=== PATIENT | female | born 1970 | race American Indian/Alaskan Native ===

== ENCOUNTER 2016-05-13 10:30 | Outpatient (CLI) | payer OTHER ==
--- NOTE | 2016-05-13 11:01 | Mammography Report ---
Right mammogram: Additional imaging of the right breast is performed for questionable asymmetry on recent screening exam. CC and lateral spot compression imaging is performed. Asymmetry is no longer identified. The findings appear essentially unchanged compared to prior exam in March 2015. Impression: Stable right mammogram. Recommendation: Annual mammogram followup. BI-RADS CATEGORY: 1 = Negative ACR BI-RADS MAMMOGRAPHIC CODES: 0 = Needs additional imaging evaluation; 1 = Negative; 2 = Benign; 3 = Probably benign; 4 = Suspicious; 5 = Malignant; 6 = Known biopsy-proven malignancy COMMENT: 1. Dense breast tissue, i.e., adenosis, fibrocystic changes, etc., may obscure an underlying neoplasm. 2. Approximately 10% of cancers are not detected with mammography. 3. A negative mammography report should not delay biopsy if a clinically suspicious mass is present.
== END 2016-05-13 10:31 | disposition home or self-care (01) ==
LOC: SPVWC 10:30
PROVIDERS: ATTEND Family Medicine
DX: R92.8 Other abnormal and inconclusive findings on diagnostic imaging of breast (principal); R92.2 Inconclusive mammogram
CPT/HCPCS: G0206-RT

== ENCOUNTER 2016-07-05 23:55 | Emergency (ER) | payer OTHER ==
[2016-07-06 00:09] VITALS: BP 114/81
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
[2016-07-06] MEDS ORDERED: NORCO 5/325 PO ONE (03:16)
== END 2016-07-06 03:51 | disposition home or self-care (01) ==
LOC: ED 23:55
DX: M25.512 Pain in left shoulder (principal); G89.29 Other chronic pain; M79.1 Myalgia; G43.909 Migraine, unspecified, not intractable, without status migrainosus
CPT/HCPCS: 99282

== ENCOUNTER 2016-11-01 16:36 | Emergency (ER) | payer OTHER ==
[2016-11-01 16:44] VITALS: BP 130/83
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
[2016-11-01] MEDS ORDERED: MOTRIN PO ONE (22:09)
[2016-11-01 22:54] LABS: Basophils % (Auto) 0.2 % (0.0-1.8); Eosinophils % (Auto) 0.1 % (0.0-4.3); Hematocrit 37.4 % (30.3-42.9); Hemoglobin 12.1 gm/dl (10.1-14.3); Mean Corpuscular HGB Conc 32 % (30-34); Mean Corpuscular Hemoglobin 29 pg (28-32); Mean Corpuscular Volume 91 fl (79-97); Platelet Count 279 K/mm3 (140-440); Red Blood Count 4.13 M/mm3 (3.65-5.03); Red Cell Distribution Width 14.2 % (13.2-15.2); White Blood Count 10.5 K/mm3 (4.5-11.0)
[2016-11-01 23:04] LABS: Anion Gap 19 mmol/L; Blood Urea Nitrogen 10 mg/dL (7-17); Calcium 9.2 mg/dL (8.4-10.2); Carbon Dioxide 22 mmol/L (22-30); Chloride 102.2 mmol/L (98-107); Glucose 99 mg/dL (65-100); Potassium 4.9 mmol/L (3.6-5.0); Sodium 138 mmol/L (137-145)
[2016-11-01 23:18] LABS: Erythrocyte Sedimentation Rate 35 mm/Hr (0-20)
--- NOTE | 2016-11-02 00:09 | Cat Scan Report ---
FINAL REPORT EXAM: CT HEAD/BRAIN WO CON HISTORY: right sided headache COMPARISON: None available. TECHNIQUE: Axial images obtained skull base through vertex. FINDINGS: No acute intracranial hemorrhage, midline shift or pathologic extra axial fluid collection. Ventricles and cisterns are normal in size and configuration for the patient's age. Zayas-white differentiation preserved. Calvarium grossly intact. Orbits are grossly unremarkable. Mild to moderate mucosal thickening the right sphenoid sinus. Opacification of the mid right ethmoid air cell. Mastoid air cells are clear. IMPRESSION: No grossly acute intracranial abnormality. Mild to moderate mucosal thickening the right sphenoid sinus.
== END 2016-11-02 00:55 | disposition home or self-care (01) ==
LOC: ED 16:36
DX: R51 Headache (principal)
CPT/HCPCS: 36415; 70450; 80048; 84703; 85025; 85652; 86140

== ENCOUNTER 2017-05-05 08:17 | Outpatient (CLI) | payer OTHER ==
--- NOTE | 2017-05-05 15:49 | Mammography Report ---
BILATERAL DIGITAL SCREENING MAMMOGRAM with CAD: 05/05/17 08:17:00 CLINICAL: Routine screening. COMPARISON:04/22/16 FINDINGS: The breasts are heterogeneously dense, which may obscure small masses. No mass, architectural distortion or suspicious calcifications. IMPRESSION: No mammographic evidence of malignancy. BI-RADS CATEGORY: 1 - - Negative RECOMMENDATION: Routine mammographic screening in one year. COMMENT: Patient follow-up letters are generated by our [employer] application.
== END 2017-05-05 08:18 | disposition home or self-care (01) ==
LOC: SPVWC 08:17
PROVIDERS: ATTEND Family Medicine
DX: Z12.31 Encounter for screening mammogram for malignant neoplasm of breast (principal)
CPT/HCPCS: 77067